=== PATIENT | female | born 1995 | race Caucasian/White ===

== ENCOUNTER 2017-01-17 17:13 | Emergency (ER) | payer OTHER ==
[2017-01-17 17:25] VITALS: BP 107/68; PULSE 83; TEMP 98.4; BMI 25.7
[2017-01-17] MEDS ORDERED: DIPHTH,PERTUSS(ACELL),TET 0.5 ML DISP.SYRIN IM ONE (17:40)
--- NOTE | 2017-01-17 17:52 | PDOC ---
History of Present Illness - General History Source: Patient Exam Limitations: No Limitations <Kong Jensen - Last Filed: 01/17/17 17:52> - General History Source: Patient, Family, Old Records Exam Limitations: No Limitations - History of Present Illness Initial Comments: The patient is a 22 year old female with no significant past medical history, who presents to the emergency department today for further evaluation of left second finger laceration today. The patient states that she was cutting an apple at work when she slipped and accidentally cut herself. <Peter Vale - Last Filed: 01/17/17 18:01> - General Chief Complaint: Laceration Stated Complaint: CUT TO LEFT INDEX FINGER Time Seen by Provider: 01/17/17 17:36 Past History - Past Medical History Other medical history: DENIES - Immunization History Immunization Up to Date: Yes - Psycho/Social/Smoking Cessation Hx Anxiety: No Suicidal Ideation: No Smoking History: Never smoked Information on smoking cessation initiated: No Hx Alcohol Use: Yes (SOCIAL) Drug/Substance Use Hx: No Substance Use Type: Alcohol <Kong Jensen - Last Filed: 01/17/17 17:52> <Peter Vale - Last Filed: 01/17/17 18:01> - Past Medical History Allergies/Adverse Reactions: Allergies Allergy/AdvReac Type Severity Reaction Status Date / Time No Known Allergies Allergy Unverified 01/17/17 17:15 Home Medications: Ambulatory Orders NK [No Known Home Medication] 01/17/17 Review of Systems - Review of Systems Able to Perform ROS?: Yes Comments:: GENERAL/CONSTITUTIONAL: No fever or chills. No weakness. HEAD, EYES, EARS, NOSE AND THROAT: No change in vision. No ear pain or discharge. No sore throat. CARDIOVASCULAR: No chest pain or shortness of breath. RESPIRATORY: No cough, wheezing, or hemoptysis. GASTROINTESTINAL: No nausea, vomiting, diarrhea or constipation. GENITOURINARY: No dysuria, frequency, or change in urination. MUSCULOSKELETAL: No joint or muscle swelling or pain. No neck or back pain. SKIN: (+) Finger laceration. NEUROLOGIC: No headache, vertigo, loss of consciousness, or change in strength/ sensation. ENDOCRINE: No increased thirst. No abnormal weight change. HEMATOLOGIC/LYMPHATIC: No anemia, easy bleeding, or history of blood clots. ALLERGIC/IMMUNOLOGIC: No hives or skin allergy. <Peter Vale - Last Filed: 01/17/17 18:01> *Physical Exam - Vital Signs Last Vital Signs Temp Pulse Resp BP Pulse Ox 98.4 F 83 16 107/68 100 01/17/17 17:15 01/17/17 17:15 01/17/17 17:15 01/17/17 17:15 01/17/17 17:15 <Kong Jensen - Last Filed: 01/17/17 17:52> - Vital Signs Last Vital Signs Temp Pulse Resp BP Pulse Ox 98.4 F 83 16 107/68 100 01/17/17 17:15 01/17/17 17:15 01/17/17 17:15 01/17/17 17:15 01/17/17 17:15 - Physical Exam Comments: GENERAL: Awake, alert, and fully oriented, in no acute distress HEAD: No signs of trauma EYES: PERRLA, EOMI, sclera anicteric, conjunctiva clear ENT: Auricles normal inspection, hearing grossly normal, nares patent, oropharynx clear without exudates. Moist mucosa NECK: Normal ROM, supple, no lymphadenopathy, JVD, or masses LUNGS: Breath sounds equal, clear to auscultation bilaterally. No wheezes, and no crackles HEART: Regular rate and rhythm, normal S1 and S2, no murmurs, rubs or gallops ABDOMEN: Soft, nontender, normoactive bowel sounds. No guarding, no rebound. No masses EXTREMITIES: (+) 0.25 cm very superficial linear laceration overlying the distal phalanx on the second finger of the left hand. Normal range of motion, no edema. No clubbing or cyanosis. No cords, erythema, or tenderness NEUROLOGICAL: Cranial nerves II through XII grossly intact. Normal speech, normal gait SKIN: Warm, Dry, normal turgor, no rashes or lesions noted. <Peter Vale - Last Filed: 01/17/17 18:01> ED Treatment Course - Medications Given in the ED: ED Medications Discontinued Medications Generic Name Dose Route Start Last Admin Trade Name Freq PRN Reason Stop Dose Admin Diphtheria/Tetanus/Acell Pertussis 0.5 ml 01/17/17 17:40 01/17/17 17:52 Boostrix - IM 01/17/17 17:41 0.5 ml .ONCE ONE Administration <Peter Vale - Last Filed: 01/17/17 18:01> Medical Decision Making - Medical Decision Making 01/17/17 17:47 A portion of this note was documented by scribe services under my direction. I have reviewed the details of the note, within reason, and agree with the documentation with the following case summary and management plan written by me. Patient treated in the ED. Nursing notes are reviewed and incorporated into the medical decision-making. Vital signs reviewed. Peripheral IV access obtained by the nurse, laboratory studies are drawn and sent, reviewed and interpreted by myself. Vital Signs Temp Pulse Resp BP Pulse Ox 98.4 F 83 16 107/68 100 01/17/17 17:15 01/17/17 17:15 01/17/17 17:15 01/17/17 17:15 01/17/17 17:15 22-year-old female with no past medical history, unknown last tetanus status, presents with superficial linear laceration along the distal second digit overlying the distal phalanx on the palmar side. The wound has stopped bleeding and has been cleansed with Betadine and normal saline. There appears to be a very superficial laceration. No need for sutures at this time. Dermabond applied. Tetanus ordered. Scar precautions given. Patient agrees with plan. I discussed the physical exam findings, ancillary test results and final diagnoses with the patient. I answered all of the patient's questions. The patient was satisfied with the care received and felt comfortable with the discharge plan and treatment plan. The patient will call their primary care physician within 24 hours to arrange follow-up and will return to the Emergency Department with any new, persistant or worsening symptoms. <Kong Jensen - Last Filed: 01/17/17 17:52> *DC/Admit/Observation/Transfer - Discharge Dispostion Admit: No <Kong Jensen - Last Filed: 01/17/17 17:52> - Attestations Scribe Attestion: Documentation prepared by Peter Vale, acting as biomedical electronics technician for Kong Jensen MD. <Peter Vale - Last Filed: 01/17/17 18:01> Diagnosis at time of Disposition: Laceration - Discharge Dispostion Disposition: HOME Condition at time of disposition: Stable - Patient Instructions Printed Discharge Instructions: DI for Laceration Repair With Dermabond Additional Instructions: You have had your tetanus updated. You may shower but do not scrub. To minimize scarring, minimize sun explsure. Take 650 mg tylenol every 4 hours as needed for pain.
== END 2017-01-17 17:57 | disposition home or self-care (01) ==
LOC: FER 17:13
PROC: 0HQGXZZ Repair Left Hand Skin, External Approach (ICD-10-PCS; principal; 2017-01-17)
DX: S61.211A Laceration without foreign body of left index finger without damage to nail, initial encounter (principal); W26.0XXA Contact with knife, initial encounter; Y93.89 Activity, other specified; Y92.9 Unspecified place or not applicable; Y99.0 Civilian activity done for income or pay
CPT/HCPCS: 90715; 99281-25